=== PATIENT | female | born 1985 | race African-American/Black ===

== ENCOUNTER 2022-09-02 10:10 | Outpatient (REF) | payer OTHER, SELFPAY ==
--- NOTE | 2022-09-02 10:37 | ECG_ITS ---
Test Reason : PREOP Blood Pressure : / mmHG Vent. Rate : 063 BPM Atrial Rate : 063 BPM P-R Int : 152 ms QRS Dur : 086 ms QT Int : 368 ms P-R-T Axes : 033 073 024 degrees QTc Int : 376 ms Normal sinus rhythm Normal ECG No previous ECGs available Referred By: Jean Electronically Signed By:David Berg
[2022-09-02 10:45] LABS: MANUAL DIFF FLAG NO
[2022-09-02 11:14] LABS: Basophils Percent Auto 0.6 % (0-2); Eosinophils Absolute Auto 0.6 X10*3/uL (0.0-0.4); Eosinophils Percent Auto 9.4 % (0-4); Hematocrit 38.8 % (37.0-47.0); Hemoglobin 12.6 g/dl (12.0-16.0); Imm Gran Abs Auto 0.02 X10*3/uL (0.00-0.03); Imm Gran Pct Auto 0.3 % (0.0-0.4); Lymphocytes Absolute Auto 2.1 X10*3/uL (1.2-4.9); Lymphocytes Percent Auto 32.3 % (20-40); Mean Corpuscular HGB Conc 32.5 g/dl (31.0-35.0); Mean Corpuscular Hemoglobin 29.5 pg (27.0-33.0); Mean Corpuscular Volume 90.9 fL (80.0-98.0); Monocytes Absolute Auto 0.5 X10*3/uL (0.1-1.2); Monocytes Percent Auto 7.5 % (2-11); Neutrophils Absolute Auto 3.2 x10*3/uL (2.0-8.3); Neutrophils Percent Auto 49.9 % (45-73); Platelet Count 375 X10*3/uL (160-400); Red Blood Count 4.27 X10*6/uL (4.20-5.50); White Blood Count 6.5 X10*3/uL (4.8-10.8)
[2022-09-02 11:17] LABS: Prothrombin Time 11.7 SEC (10.0-13.1)
[2022-09-02 13:21] LABS: Alanine Aminotransferase 11 U/L (0-31); Albumin Level 4.3 g/dL (3.5-5.0); Alkaline Phosphatase 78 U/L (39-117); Anion Gap 10 (12-20); Aspartate Amino Transferase 16 U/L (5-31); Bilirubin Total 0.8 mg/dL (0.0-1.0); Blood Urea Nitrogen 14 mg/dL (9-16); Calcium 9.8 mg/dL (8.4-10.2); Carbon Dioxide 28 mmol/L (22-29); Chloride 107 mmol/L (96-108); Estimated Glomerular Filt Rate > 60; Glucose Random 55 mg/dL (60-115); HCG Quantitative < 2 mIU/mL; Potassium 5.1 mmol/L (3.3-5.1); Sodium 140 mmol/L (135-145); Total Protein 7.5 g/dL (6.5-8.0)
== END 2022-09-02 10:11 | disposition home or self-care (01) ==
LOC: HO.LAB 10:10
PROVIDERS: PCP Hospitalist; Visit Provider Family Medicine
DX: Z01.818 Encounter for other preprocedural examination (principal)
CPT/HCPCS: 36415; 80053; 84702; 85025; 85610; 85730; 93005

== ENCOUNTER → 2023-01-07 10:16 | Outpatient (BNVA) | payer OTHER, SELFPAY | PROVIDERS: PCP Hospitalist; Visit Provider Advanced Practice Midwife | DX: Z32.01 Encounter for pregnancy test, result positive (principal); Z30.09 Encounter for other general counseling and advice on contraception | CPT/HCPCS: 81025; 99202 ==

== ENCOUNTER 2023-05-14 12:51 | Outpatient (AMB) | payer OTHER, SELFPAY ==
--- NOTE | 2023-05-14 12:57 | A.OFFPC_ITS ---
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 Patient states her next OB appointment is in June and she would like to be on control before then. 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 Dr. Rico was Ob[facility] Last office visit/CPE: > 1 yr ago Acute issue(s): Control -Pt notes she has an appt. with Karsten Sorensen PMHx: Denies SurgHx: x2 FHx: Mom: Healthy. Dad: EtOH. GM: Diabetes SocHx: Nonsmoker. EtOH 1 drink on the weekend. MJ daily. 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 1. Little interest or pleasure in doing things: not at all 2. Feeling down, depressed, or hopeless: not at all 3. Trouble falling or staying asleep, or sleeping too much: not at all 4. Feeling tired or having little energy: not at all 5. Poor appetite or overeating: not at all 6. Feeling bad about yourself - or that you are a failure or have let yourself or your family down: not at all 7. Trouble concentrating on things, such as reading the newspaper or watching television: not at all 8. Moving or speaking so slowly that other people could have noticed. Or the opposite - being so fidgety or restless that you have been moving around a lot more than usual: not at all 9. Thoughts that you would be better off or of hurting yourself in some way: not at all Total score: 0 Depression Screening Interpretation: Negative Source: Developed by Drs. Mickey Tay, Fani Valdovinos, Jt Soto and colleagues, with an educational elsa from [employer]. Thrive Questionnaire Date Thrive assessed: 05/14/23 I am a: Patient What is your living situation today?: I have a steady place to live Within the past 12 months, did the food you bought not last and you didn't have the money to get more?: Never true Within the past 12 months, did you worry whether your food would run out before you got money to buy more?: Never true Do you have trouble paying for medicines?: No Do you have trouble getting transportation to medical appointments?: No Do you have trouble paying your heating and electricity bill?: No Do you have trouble taking care of your child, family member or friend?: No Do you have trouble with day-to-day activities such as bathing, preparing meals, shopping, managing finances, etc.?: No Are you currently unemployed and looking for a job?: No Are you interested in more education?: No Please select the resources that you would like help with: None Currently or been in a relationship where the following occur: no concerns reported AUDIT C Alcohol Use Questionnaire (AUDIT-C) 1. How often do you have a drink containing alcohol?: 2-3 times a week 2. How many drinks containing alcohol do you have on a typical day when you are drinking?: 3 or 4 3. How often do you have six or more drinks on one occasion?: Never Total Score: 4 ASHLEY-7 AMB Questionnaire ASHLEY-7 Date ASHLEY - 7 assessed: 05/14/23 Feeling nervous, anxious, or on edge: 1 = Several days Not being able to stop or control worryin = Not at all Worrying too much about different things: 0 = Not at all Trouble relaxin = Not at all Being so restless that it is hard to sit still: 0 = Not at all Becoming easily annoyed or irritable: 0 = Not at all Feeling afraid as if something awful might happen: 0 = Not at all Total ASHLEY-7 score (0-4 normal; 5-9 mild; 10-14 moderate; 15-21 severe): 1 Source: Developed by Drs. Mickey Tay, Fani Valdovinos, Jt Soto and colleagues, with an educational elsa from [employer]. Review of Systems Const Denies chills, Denies fatigue, Denies fever(s), Denies headache(s) and Denies weakness Eyes Denies change in vision ENT Denies dizziness, Denies headache(s), Denies hearing loss, Denies nasal congestion, Denies sinus pain, Denies sinus pressure and Denies sore throat Card Denies chest pain, Denies lightheadedness, Denies dyspnea and Denies other (palpitations) Resp Denies cough, Denies dyspnea and Denies wheezing GI Denies abdominal pain, Denies melena, Denies hematochezia, Denies change in bowel habits, Denies dyspepsia and Denies nausea Denies hematuria and Denies dysuria Musc Denies abnormal gait, Denies myalgias, Denies arthralgias, Denies numbness and Denies tingling Skin/Breast Denies rash, Denies unusual bruising and Denies wounds Neuro Denies abnormal gait, Denies dizziness, Denies headache(s), Denies memory loss, Denies numbness, Denies Sensory deficit (Neuro), Denies tingling and Denies weakness Psych Denies anxiety, Denies depression and Denies memory loss Endo Denies cold intolerance, Denies fatigue, Denies heat intolerance, Denies polydipsia and Denies polyuria Mehdi/Lymph Denies easy bleeding and Denies easy bruising Aller/Immun Denies wheezing Physical exam (Primary Care) Vital Signs: Last Vital Signs Temp 97.7 F 05/14/23 12:58 Pulse 70 05/14/23 12:58 Resp 12 05/14/23 12:58 BP 124/70 05/14/23 12:58 Pulse Ox 99 05/14/23 12:58 Oxygen Delivery Method Room Air 05/14/23 12:58 BMI result Body Mass Index 22.3 Tobacco/Smoking Status: Tobacco use Status Tobacco use date assessed 05/14/23 05/14/23 13:08 Patient Tobacco Use Status Never used Tobacco 05/14/23 13:08 e-Cigarette/Vaping Use Never Used 05/14/23 13:08 PHQ-9: PHQ-9 Score PHQ-9: Total score 0 05/14/23 13:15 Depression Screening Interpretation: Negative Thrive Assessment: Date of Thrive Assessment Date Thrive assessed 05/14/23 05/14/23 13:08 Currently or been in a relationship where the following occur: no concerns reported Const General: no acute distress, well developed, alert and awake Nutritional Appearance: well nourished Orientation/consciousness: patient oriented x3 HENMT Head: Yes normocephalic and Yes atraumatic Ears: hearing grossly normal bilaterally and TM's normal bilaterally General nose exam: Normal external nose present and Normal nares present Mouth: Normal oral and palatal mucosa present and moist mucous membranes Teeth and gingiva: dentition normal Throat: Yes posterior oropharynx normal Eyes General: appearance normal, both eyes and all related structures Pupils: Equal, round and reactive pupils present and Pupil accommodation reflex normal EOM: EOMs intact bilaterally Neck Neck: Yes normal visual inspection, Yes no lymphadenopathy and Yes trachea midline Thyroid: Thyroid normal Carotids: no bruits Lymphatic: no lymphadenopathy noted Chest Chest palpation & inspection: normal inspection of the chest Resp Effort & Inspection: normal respiratory effort Auscultation: clear to auscultation bilaterally Cardio Rate: regular rate Rhythm: regular rhythm Heart sounds: S1 normal heart sound present, S2 normal heart sound present, no gallops, no murmurs and no rubs Bruits: no abdominal aortic bruits and no carotid bruits GI Palpation (GI): No Abdominal aortic bruit present, Soft to palpation, nontender, No hepatosplenomegaly present and No Rebound tenderness present Auscultation: normal bowel sounds General: Yes no CVA tenderness Back/Spine/Pelvis Back: no CVA tenderness Cervical Spine: cervical ROM normal and No Cervical spine tenderness Thoracic/Lumbar Spine: thoraco-lumbar ROM normal, No pain with thoraco-lumbar ROM, No thoracic spinal tenderness and No lumbar spinal tenderness Skin Lesions: no lesions Rashes: no rashes Trauma: no lacerations or abrasions Wounds: no wounds Nails: normal Neuro General: patient oriented x3 Cranial nerves: Yes Equal, round and reactive pupils present Cognition (Neuro): normal cognition Gait exam (Neuro): Normal gait present Motor exam (neuro): 5/5 motor strength present throughout Sensory Exam: No Sensory deficit (Neuro) Deep tendon reflexes (DTR's): Right patellar reflex intensity grade: 2+ and Left patellar reflex intensity grade: 2+ Extrem General: Yes normal to inspection and No edema Psych Appearance: grossly normal Affect: normal affect Attitude: cooperative Thought process: Normal thought process present Assessment and Plan Assessment & Plan (1) control counseling: Code(s): Z30.09 - Encounter for other general counseling and advice on contraception Plan: HCG negative Can start OCP. Had recommended she start OCP on day 1 of menstruation or the Wednesday after beginning menstruation. She notes that she is already passed her period for this month. She would like to begin as soon as possible so I recommended that she use another form of control for the 1st month. She has an appointment with her OBGYN to further discuss control including Mirena. (2) Screening for cervical cancer: Code(s): Z12.4 - Encounter for screening for malignant neoplasm of cervix Plan: Follow-up with senior accounts payable clerk (3) Adult general medical exam: Code(s): Z00.00 - Encounter for general adult medical examination without abnormal findings Plan: 38-year-old female presents for an extended exam Encouraged healthy diet with active lifestyle and plenty of exercise Orders: Orders Microalbumin, Random (w Creat) Today I10 - Essential (primary) hypertension Comprehensive [place]. Panel Fast Today Z00.00 - Encounter for general adult medical examination without abnormal findings Lipid Panel Today Z00.00 - Encounter for general adult medical examination without abnormal findings UA and rflx microscopic Today Z00.00 - Encounter for general adult medical examination without abnormal findings TSH reflex Free T4 Today Z00.00 - Encounter for general adult medical examination without abnormal findings Medications: New norethindrone-e.estradiol-iron 1 mg-10 mcg (24)/10 mcg (2) (Lo Loestrin Fe) 1 tab PO DAILY 28 tabs 3RF 28 days Coding Level of Care Code New Pt Level 4 (55704) Diagnoses control counseling Z30.09 Screening for cervical cancer Z12.4 Adult general medical exam Z00.00
[2023-05-14 12:58] VITALS: BP 124/70; PULSE 70; RESP 12; TEMP 36.5; O2SAT 99; BMI 22.3
== END 2023-05-14 13:37 | disposition home or self-care (01) ==
PROVIDERS: PCP Hospitalist; Visit Provider Family Medicine
DX: Z00.00 Encounter for general adult medical examination without abnormal findings (principal)
CPT/HCPCS: 99395

== ENCOUNTER 2023-05-14 13:42 | Outpatient (REF) | payer OTHER, SELFPAY ==
[2023-05-14 18:17] LABS: Appearance Urine Clear; Color Urine Yellow; Glucose Urine UA Negative (Negative); Leukocyte Esterase Urine Negative (Negative); Nitrite Urine Negative (Negative); Urine Blood Negative (Negative); Urine Ketones Negative (Negative); Urine Protein Negative (Neg-Trace)
[2023-05-14 18:29] LABS: Creatinine Urine 66.87 mg/dL; Microalbumin Urine < 5.0 mg/L
== END 2023-05-14 13:43 | disposition home or self-care (01) ==
LOC: HO.LAB 13:42
PROVIDERS: Visit Provider Family Medicine
DX: Z00.00 Encounter for general adult medical examination without abnormal findings (principal); I10 Essential (primary) hypertension
CPT/HCPCS: 81003; 82570

== ENCOUNTER 2023-06-30 10:42 | Outpatient (REF) | payer OTHER, SELFPAY ==
[2023-07-01 06:14] LABS: CT PCR NOT DETECTED (Not Detect.); NG PCR NOT DETECTED (Not Detect.)
[2023-07-01 12:54] LABS: BV Int Neg Control Negative (Negative); BV Int Pos Control Positive (Positive)
[2023-07-05 11:59] LABS: HPV mRNA E6/E7 rflx Not Detected (Not Detected)
== END 2023-06-30 10:43 | disposition home or self-care (01) ==
LOC: HO.LNP 10:42
PROVIDERS: PCP Family Medicine; Visit Provider Advanced Practice Midwife
DX: Z01.419 Encounter for gynecological examination (general) (routine) without abnormal findings (principal); D21.9 Benign neoplasm of connective and other soft tissue, unspecified; Z11.3 Encounter for screening for infections with a predominantly sexual mode of transmission; Z79.899 Other long term (current) drug therapy
CPT/HCPCS: 0353U; 87480; 87510; 87624; 87660; 88142; 99395

== ENCOUNTER 2023-06-30 10:42 | Outpatient (AMB) | payer OTHER, SELFPAY ==
[2023-06-30 10:59] VITALS: BP 106/64; BMI 22.8
--- NOTE | 2023-06-30 10:59 | A.OFFVIS_ITS ---
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 Intake Note: would like to switch to a mirena and would like to check fibroids Night Warehouse Manager Required: No Information Interpreted: non-clinical & clinical Pattern Stamper: Pattern Stamper Present (Mariella) Allergies No Known Allergies Allergy (Verified 06/30/23 11:00) Medication List - Last Reconciled 06/30/23 by Alma Delia العلي CNM norethindrone-e.estradiol-iron 1 mg-10 mcg (24)/10 mcg (2) (Lo Loestrin Fe) 1 tab PO DAILY 28 days Is last menstrual period known: Yes Last menstrual period: 06/04/23 Post menopausal: No HPI 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 She had 2 C sections done in [place] 1 at 24 weeks and 1 at term that was planned she had fibroids in the past and that is why she needed the repeat as well as the initial C- section which they think might of been responsible for the pre term labor. They did remove that fibroid but she wonders if any of grown back since. She also had a Hungarian butt lift done about a year and half ago. 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 Cognitive needs: No Hearing needs: No Vision needs: No Female Reproductive History Menstrual Age of Menarche: 14 Duration of menses: 6-7 days Date of last menstrual period: 06/04/23 control method: pills Total pregnancies: 4 Full term: 2 Number of Living Children: 2 Ab induced: 2 Physical Exam Vital Signs: Last Vital Signs BP 106/64 06/30/23 10:59 BMI result Body Mass Index 22.8 Const General: healthy appearing, comfortable, no acute distress, well developed and alert Nutritional Appearance: average body habitus Orientation/consciousness: patient oriented x3 Limitations: no limitations HEENT Head: Yes normocephalic Neck Neck: Yes normal visual inspection Chest Chest palpation & inspection: normal inspection of the chest Breast/axilla inspection: normal inspection of the breasts and normal inspection of the axillae Breast/axilla palpation: normal palpation of the breasts and normal palpation of the axillae Resp Effort & Inspection: normal respiratory effort GI Inspection: Yes normal to inspection, No Abdominal wall edema and No distended Palpation (GI): Soft to palpation and nontender Other: Exam within normal limits. Vagina pink and moist cervix is nulliparous and pink and tightly closed. Cervix midposition uterus is markedly retroverted firm small. There is overlying abdominal scar tissue from her previous C-sections and liposuction General: Yes bladder normal to palpation External Female Exam: normal external appearance and normal appearance of the urethra Speculum Exam - Vagina: normal appearance of the vagina, normal palpation and normal vaginal discharge Speculum Exam - Cervix: normal appearance of the cervix, normal palpation and nontender Bimanual exam- vagina & uterus: normal bimanual exam, normal palpation, uterine size normal, bladder normal to palpation, consistency normal, normal palpation, uterine mobility normal, uterine shape normal, No Cervical tenderness present, non-tender and no cervical motion tenderness Bimanual Exam- Adnexa, other: normal adnexae, no masses, normal and No adnexal tenderness Neuro General: patient oriented x3 Assessment & Plan Assessment & Plan (1) Screening for cervical cancer: Code(s): Z12.4 - Encounter for screening for malignant neoplasm of cervix (2) control counseling: Code(s): Z30.09 - Encounter for other general counseling and advice on contraception (3) Fibroids: Code(s): D21.9 - Benign neoplasm of connective and other soft tissue, unspecified Plan -----Discussed in this visit the following: healthy balanced diet, regular and consistent exercise, getting recommended health screens, doing the best she can for her particular health concerns, kegel exercises, pap smear screening and followup recommendations, mammography screening and SBE, normal changes in cycles in her life stage--- . Smear was done because she does not have a record of her last 1 which was done in [place] she thinks a couple of years ago. Testing for STIs was done she is not worried about blood work though. [facility]. She does not want to take a chance of that happening again so she would like to switch from the pills to the a Mirena. Discussed that it needs to be inserted with her menses and because her cervix is so tightly closed because she has only had 2 C sections then I recommend that she also use a misoprostol vaginally the the morning of the day of insertion which needs to be done with her menses. I am also ordering a pelvic ultrasound to check on her fibroids could she is concerned about them. We will have a visit after that ultrasound as well. Prescription sent ultrasound ordered I also refilled her pills so she does not run out in the meantime Orders: Orders US pelvic and transvaginal Today D21.9 - Benign neoplasm of connective and other soft tissue, unspecified, Z01.419 - Encounter for gynecological examination (general) (routine) without abnormal findings, Z12.4 - Encounter for screening for malignant neoplasm of cervix, Z30.09 - Encounter for other general counseling and advice on contraception Bacterial Vaginosis Panel Today Z20.2 - Contact with and (suspected) exposure to infections with a predominantly sexual mode of transmission CT NG by PCR Today Z20.2 - Contact with and (suspected) exposure to infections with a predominantly sexual mode of transmission Pap Smear Today Z12.4 - Encounter for screening for malignant neoplasm of cervix Medications: New misoprostol Place in vagina within 4 hours prior to planned IUD procedure 200 mcg vaginal ONCE 1 tab 0RF Changed From norethindrone-e.estradiol-iron 1 mg-10 mcg (24)/10 mcg (2) (Lo Loestrin Fe) 1 tab PO DAILY 28 days 28 tabs 3RF To norethindrone-e.estradiol-iron 1 mg-10 mcg (24)/10 mcg (2) (Lo Loestrin Fe) 1 tab PO DAILY 84 days 84 tabs 3RF Coding Level of Care Code Est Pt Prev Care 18-39y(35685) Diagnoses Screening for cervical cancer Z12.4 control counseling Z30.09 Fibroids D21.9
== END 2023-06-30 11:36 | disposition home or self-care (01) ==
LOC: HO.HWS 10:42
PROVIDERS: PCP Family Medicine; Visit Provider Advanced Practice Midwife
DX: Z01.419 Encounter for gynecological examination (general) (routine) without abnormal findings (principal); Z30.09 Encounter for other general counseling and advice on contraception; D21.9 Benign neoplasm of connective and other soft tissue, unspecified
CPT/HCPCS: 99395

== ENCOUNTER 2023-07-12 16:32 | Outpatient (AMB) | payer OTHER, SELFPAY ==
[2023-07-12 16:38] VITALS: BP 100/52; PULSE 75; RESP 13; O2SAT 100; BMI 23.2
--- NOTE | 2023-07-12 16:38 | A.OFFPC_ITS ---
Vital Signs 07/12/23 16:38 Height 5 ft 5 in Weight 139 lb 8 oz BMI 23.2 BP 100/52 L Blood Pressure Location Lt brachial Position Sitting Respiration 13 Pulse 75 Pulse Source Pulse Oximeter Pulse Oximetry (%) 100 Oxygen Delivery Method Room Air Intake Visit Reasons: pain on left foot Intake Note: Patient reports she has a painful little toe on her left foot for the last 5 months. Patient reports there is sometimes swelling, and a spot is seen between the toes. Patient denies the little toe becoming hot to the touch. Hair Blender Required: No Accompanied by: Self / Same As Patient Allergies No Known Allergies Allergy (Verified 07/12/23 16:56) Medication List - Last Reconciled 07/12/23 by Elizabet Ann CNP misoprostol 200 mcg vaginal ONCE norethindrone-e.estradiol-iron 1 mg-10 mcg (24)/10 mcg (2) (Lo Loestrin Fe) 1 tab PO DAILY 84 days Tobacco use date assessed: 05/14/23 HPI HPI Comments History of Present Illness Details 38-year-old female presents with complai nts of discoloration and interm ittent pain between her left 4th and 5th toe. She notes that her her symptoms have been ongoing for the past 5 months and refractory to various [id number] regimen. 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 Mickey Tay, Fani Valdovinos, Jt Soto and colleagues, with an educational elsa from [employer]. Review of Systems Const Details: Const Denies chills, Denies fatigue, Denies fever(s), Denies headache(s) and Denies weakness ENT Denies dizziness and Denies headache(s) Card Denies chest pain, Denies lightheadedness, Denies dyspnea and Denies other (Palpitations) Resp Denies cough, Denies dyspnea, Denies wheezing and Denies other ( shortness of breath) GI Denies abdominal pain, Denies melena, Denies hematochezia, Denies change in bowel habits, Denies dyspepsia and Denies nausea Denies hematuria and Denies dysuria Musc Denies abnormal gait, Denies myalgias, Denies arthralgias, Denies numbness and Denies tingling Skin/Breast Reports as per HPI Neuro Denies abnormal gait, Denies dizziness, Denies headache(s), Denies memory loss, Denies numbness, Denies Sensory deficit (Neuro), Denies tingling and Denies weakness Psych Denies anxiety, Denies depression, Denies memory loss Endo Denies cold intolerance, Denies fatigue, Denies heat intolerance, Denies polydipsia and Denies polyuria Aller/Immun Denies wheezing Physical exam (Primary Care) Vital Signs: Last Vital Signs Pulse 75 07/12/23 16:38 Resp 13 07/12/23 16:38 BP 100/52 L 07/12/23 16:38 Pulse Ox 100 07/12/23 16:38 Oxygen Delivery Method Room Air 07/12/23 16:38 BMI result Body Mass Index 23.2 Tobacco/Smoking Status: Tobacco use Status Tobacco use date assessed 05/14/23 07/12/23 16:46 Patient Tobacco Use Status Never used Tobacco 07/12/23 16:46 e-Cigarette/Vaping Use Never Used 07/12/23 16:46 Thrive Assessment: Date of Thrive Assessment Date Thrive assessed 05/14/23 07/12/23 16:46 Const Other: General: no acute distress and well developed Nutritional Appearance: well nourished Orientation/consciousness: patient oriented x3 HENMT Head: Yes normocephalic and Yes atraumatic Eyes General: appearance normal, both eyes and all related structures Pupils: Equal, round and reactive pupils present EOM: EOMs intact bilaterally Resp Effort & Inspection: normal respiratory effort Auscultation: clear to auscultation bilaterally Cardio Rate: regular rate Rhythm: regular rhythm Heart sounds: S1 normal heart sound present, S2 normal heart sound present, no gallops, no murmurs and no rubs GI Palpation (GI): No Abdominal aortic bruit present, Soft to palpation, nontender, No hepatosplenomegaly present and No Rebound tenderness present Auscultation: normal bowel sounds General: Yes no CVA tenderness Back/Spine/Pelvis Back: no CVA tenderness Cervical Spine: cervical ROM normal and No Cervical spine tenderness Thoracic/Lumbar Spine: thoraco-lumbar ROM normal, No pain with thoraco-lumbar ROM, No thoracic spinal tenderness and No lumbar spinal tenderness Extrem General: Yes normal to inspection, No edema and No calf tenderness Skin General: warm and dry. Normal skin color. Normal skin turgor Archer and white skin discoloration between the left 4th and 5th toe, consistent with tinea pedis Neuro General: patient oriented x3, gait normal and no focal neuro deficit Cranial nerves: Yes Equal, round and reactive pupils present Cognition (Neuro): normal cognition Gait exam (Neuro): Normal gait present Sensory Exam: No Sensory deficit (Neuro) Psych Appearance: grossly normal Affect: normal affect Attitude: cooperative Thought process: Normal thought process present Assessment and Plan Assessment & Plan (1) Tinea pedis of left foot: Code(s): B35.3 - Tinea pedis Plan: Reports discoloration and intermittent pain between her left 4th and 5th toe for the past 5 months; refractory to [id number]-[id number] regimen Archer and white skin discoloration between the left 4th and 5th toe, consistent with tinea pedis Ketoconazole cream ordered. Use as prescribed Advised to use anti microbial soap to wash the infected area before application of fungal cream Follow-up with worsening or new signs and symptoms Verbalized understanding and agreed with treatment plan. Medications: New ketoconazole 2% 1 appl topical BID 15 grams 1RF 2 weeks Coding Level of Care Code Est Pt Level 3 (81109) Diagnoses Tinea pedis of left foot B35.3
== END 2023-07-12 17:05 | disposition home or self-care (01) ==
PROVIDERS: PCP Hospitalist; Visit Provider Nurse Practitioner Family
DX: B35.3 Tinea pedis (principal)
CPT/HCPCS: 99213

== ENCOUNTER 2023-09-14 12:51 | Outpatient (REF) | payer OTHER, SELFPAY ==
--- NOTE | ~2023-09-14 | US_ITS ---
EXAMINATION: US PELVIS COMPLETE TRANSVAGINAL PELVIC ULTRASOUND: CLINICAL INFORMATION: Screening for cervical cancer COMPARISON: None TECHNIQUE: Transabdominal imaging initially performed. For more definitive evaluation of the endometrium and ovaries, transvaginal technique was employed. FINDINGS: Uterus is anteverted measuring 7.7 x 3.7 x 4.8cm. 1.0 x 1.1 x 1.2 cm uterine fibroid is seen. Endometrium measures 0.3 cm. Nabothian cysts identified in the cervix. Right ovary measures 3.4 x 1.4 x 1.5 cm for a volume of 3.7 mL. The left ovary measures 3.6 x 1.6 x 2.1 cm for a volume of 6.3 mL. 1.6 x 1.3 x 1.4 cm ovarian cyst versus dominant follicle. 1.7 x 1.3 x 1.4 cm corpus luteum cyst. There is small amount of pelvic free fluid. US/US pelvic and transvaginal IMPRESSION: 1.2 cm uterine fibroid. No ovarian or cervical pathology recognized. Small amount of free pelvic fluid, likely physiologic.
== END 2023-09-14 12:52 | disposition home or self-care (01) ==
LOC: HO.US 12:51
PROVIDERS: PCP Family Medicine; Visit Provider Advanced Practice Midwife
DX: D21.9 Benign neoplasm of connective and other soft tissue, unspecified (principal)
CPT/HCPCS: 76830; 76856

== ENCOUNTER 2023-09-23 14:30 | Outpatient (AMB) | payer OTHER, SELFPAY ==
[2023-09-23 14:32] VITALS: BP 130/64; BMI 22.3
--- NOTE | 2023-09-23 14:32 | MHC.OFFVIS ---
Intake Vital Signs 09/23/23 14:32 Height 5 ft 5 in Weight 134 lb BMI 22.3 BP 130/64 Blood Pressure Location Rt brachial Position Sitting Intake Visit Reasons: US follow up Intake Note: Pt presents to the office today for an ultrasound follow up. Pt states she is feeling well. Allergies No Known Allergies Allergy (Verified 09/23/23 14:33) Medication List - Last Reconciled 09/23/23 by Alma Delia العلي CNM ketoconazole 2% 1 appl topical BID 2 weeks misoprostol 200 mcg vaginal ONCE norethindrone-e.estradiol-iron 1 mg-10 mcg (24)/10 mcg (2) (Lo Loestrin Fe) 1 tab PO DAILY 84 days HPI US follow up HPI Details Patient is here for ultrasound follow-up. She had a history of fibroids in the past and wanted to see if. 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 Cognitive needs: No Hearing needs: No Vision needs: No Female Reproductive History Menstrual Age of Menarche: 14 Physical Exam Vital Signs: Last Vital Signs BP 130/64 09/23/23 14:32 BMI result Body Mass Index 22.3 Results Reviewed Results Reviewed: [address] [address] Ultrasound Report Signed Patient: Andria Angeles MR#: [id number] : 1985 Acct:[id number] Age/Sex: 38 / F ADM Date: 09/14/23 Loc: HO.US Attending Dr: Alma Delia العلي CNM Ordering Physician: Alma Delia العلي CNM Date of Service: 09/14/23 Procedure(s): US pelvic and transvaginal Accession Number(s): [id number] cc: Brayan Mcintyre MD; Alma Delia العلي CNM~ EXAMINATION: US PELVIS COMPLETE TRANSVAGINAL PELVIC ULTRASOUND: CLINICAL INFORMATION: Screening for cervical cancer COMPARISON: None TECHNIQUE: Transabdominal imaging initially performed. For more definitive evaluation of the endometrium and ovaries, transvaginal technique was employed. FINDINGS: Uterus is anteverted measuring 7.7 x 3.7 x 4.8cm. 1.0 x 1.1 x 1.2 cm uterine fibroid is seen. Endometrium measures 0.3 cm. Nabothian cysts identified in the cervix. Right ovary measures 3.4 x 1.4 x 1.5 cm for a volume of 3.7 mL. The left ovary measures 3.6 x 1.6 x 2.1 cm for a volume of 6.3 mL. 1.6 x 1.3 x 1.4 cm ovarian cyst versus dominant follicle. 1.7 x 1.3 x 1.4 cm corpus luteum cyst. There is small amount of pelvic free fluid. US/US pelvic and transvaginal IMPRESSION: 1.2 cm uterine fibroid. No ovarian or cervical pathology recognized. Small amount of free pelvic fluid, likely physiologic. 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 Negative for intraepithelial lesion or malignancy. HPV mRNA E6/E7: NOT DETECTED This assay detects E6/E7 viral messenger RNA (mRNA) from 14 high-risk HPV types (16, 18, 31, 33, 35, 39, 45, 51, 52, 56, 58, 59, 66, 68) HPV testing performed by [employer], [place], [place]. See reference laboratory portion of the EMR for entire report. Clinical Information LMP: 06/04/23 Previous PAP test: Unknown date/findings Material Received ThinPrep-Cervical Copies To Brayan Mcintyre MD [address] [facility]. [place], [place] [id number] [address] Cook [address] [place] [id number] Electronically Signed By: KARINA Gunter (ASCP) 07/21/23 2229 The Pap Test is a screening procedure with the inherent possibility of both false negative and false positive results. Results should be interpreted in the context of historic and current clinical findings. Reliability of the Pap Test is enhanced by performing the test on a regular repetitive basis. Patient: Andria Angeles Age/Sex: 38/F MR#: [id number] Page 1 of 1 Assessment & Plan Assessment & Plan (1) Screening for cervical cancer: Comment: 06/30/2023 Pap is negative with negative HPV. Code(s): Z12.4 - Encounter for screening for malignant neoplasm of cervix (2) Fibroids: Code(s): D21.9 - Benign neoplasm of connective and other soft tissue, unspecified (3) control counseling: Code(s): Z30.09 - Encounter for other general counseling and advice on contraception Plan Reviewed her Pap smear reviewed the ultrasound which just shows 1 small 1.2 cm fibroid. Reviewed the fibroid sometimes can grow bigger which is apparently what they did when she was . She ended up having her because her child was delivered pre term and there was some feeling that the fibroids had some responsibility in that. She said that they had removed the fibroids during the because they could and they were large. She has not having any symptoms or any problems right now she is on the control pills for now and doing well with them they were prescribed in June and she has enough to last her through next June. We had discussed a Mirena IU S as a more reliable method of control as she had had an unplanned in this past year however she is still thinking about that per my last note I noted that her cervix was very tightly closed and that if she did want a Mirena not only would we want to insert it at the beginning of her. But also she would benefit from a dose of misoprostol vaginally about 6 hours before planned insertion to aid in the insertion process because her cervix was so tightly closed. If she decides she wants a Mirena she needs to call when her periods starts and also leave a message for the nurses to give to me so that I may order a dose of misoprostol for pre IUD insertion dosing. Otherwise we see her next June Coding Level of Care Code Est Pt Level 3 (91326) Diagnoses Screening for cervical cancer Z12.4 Fibroids D21.9 control counseling Z30.09
== END 2023-09-23 16:18 | disposition home or self-care (01) ==
LOC: HO.HWSM 14:30
PROVIDERS: PCP Family Medicine; Visit Provider Advanced Practice Midwife
DX: D25.9 Leiomyoma of uterus, unspecified (principal); Z30.09 Encounter for other general counseling and advice on contraception
CPT/HCPCS: 99213

== ENCOUNTER → 2023-09-23 14:30 | Outpatient (BNVA) | payer OTHER, SELFPAY | PROVIDERS: PCP Family Medicine; Visit Provider Advanced Practice Midwife | DX: Z12.4 Encounter for screening for malignant neoplasm of cervix (principal); Z30.09 Encounter for other general counseling and advice on contraception; D21.9 Benign neoplasm of connective and other soft tissue, unspecified | CPT/HCPCS: 99212 ==

== ENCOUNTER 2023-10-18 08:57 | Outpatient (AMB) | payer OTHER, SELFPAY ==
--- NOTE | 2023-10-18 09:12 | MHC.OFFWIV ---
Intake Vital Signs 10/18/23 09:13 Height 5 ft 5 in Weight 136 lb 6 oz BMI 22.7 BP 119/58 L Blood Pressure Location Lt brachial Position Sitting Respiration 12 Pulse 69 Pulse Source Pulse Oximeter Temp 99.1 F Temp Source Temporal Artery Scan Pulse Oximetry (%) 98 Oxygen Delivery Method Simple Mask Intake Visit Reasons: foot pain, referral Intake Note: Patient reports left foot, little toe has been in pain for some time. She was seen by Elizabet Ann previously and was given Ketoconazole cream which helped a little but the pain has returned and has worsened. Patient Tobacco Use Status: Never used Tobacco Allergies No Known Allergies Allergy (Verified 10/18/23 09:39) Medication List - Last Reconciled 10/18/23 by NATHAN Hanks-TREVOR norethindrone-e.estradiol-iron 1 mg-10 mcg (24)/10 mcg (2) (Lo Loestrin Fe) 1 tab PO DAILY 84 days Do you need a note to return to daycare/school/sports/work: No HPI HPI Comments History of Present Illness Details Last January noticed spot between toe on Left foot 4/5th toe worse since onset used otc fungal spray, cream, powder no relief was tx w/ RX af by PCP helped some however it has returned [facility] Medical History (Updated 10/18/23 @ 09:43 by NATHAN Hanks-TREVOR) [place] of toe No pertinent past medical history Surgical History Hx of section Family History Father Alcoholism Maternal Grandmother High blood pressure Diabetes Paternal Grandfather Cancer Social History Housing: House Alcohol intake: current Alcohol intake frequency: holidays/special occasions only Patient Tobacco Use Status: Never used Tobacco e-Cigarette/Vaping Use: Never Used Substance Use Type: Marijuana service: No Current occupational status: employed 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 Cognitive needs: No Hearing needs: No Vision needs: No Female Reproductive History Menstrual Age of Menarche: 14 Review of Systems Const All systems reviewed & are unremarkable except as noted in HPI and below Physical Exam Vital Signs: Last Vital Signs Temp 99.1 F 10/18/23 09:13 Pulse 69 10/18/23 09:13 Resp 12 10/18/23 09:13 BP 119/58 L 10/18/23 09:13 Pulse Ox 98 10/18/23 09:13 Oxygen Delivery Method Simple Mask 10/18/23 09:13 BMI result Body Mass Index 22.7 Const Other: awake alert NAD Left foot in between 4th and 5th toe is a corn that is causing pressure to soft tissue between toes no erythema, drainage or signs of infection neurovasc intact Assessment & Plan Assessment & Plan (1) [place] of toe: Code(s): L84 - Corns and callosities Plan: no need for antifungal treatment ok to use otc pressure relief items as shown to you today f/u with podiatry for removal of this painful area Orders: Referrals Podiatry Referral L84 - Corns and callosities Coding Level of Care Code Est Pt Level 3 (84729) Diagnoses [place]dale of toe L84
[2023-10-18 09:13] VITALS: BP 119/58; PULSE 69; RESP 12; TEMP 37.3; O2SAT 98; BMI 22.7
== END 2023-10-18 09:46 | disposition home or self-care (01) ==
PROVIDERS: PCP Family Medicine; Visit Provider Nurse Practitioner Family
DX: L84 Corns and callosities (principal)
CPT/HCPCS: 99213

== ENCOUNTER → 2024-09-25 13:22 | Outpatient (BNVA) | payer OTHER, SELFPAY | PROVIDERS: PCP Family Medicine; Visit Provider Advanced Practice Midwife | DX: Z01.419 Encounter for gynecological examination (general) (routine) without abnormal findings (principal); Z30.09 Encounter for other general counseling and advice on contraception; Z12.4 Encounter for screening for malignant neoplasm of cervix | CPT/HCPCS: 81025; 99395; 99459 ==